=== PATIENT | female | born 1970 | race Caucasian/White ===

== ENCOUNTER 2019-11-24 11:03 | Emergency (ER) | payer BC, OTHER ==
[~2019-11-24] VITALS: Ht 165.1 cm; Wt 68.0 kg
[~2019-11-24 11:03] MED LIST: ANASPAZ0.125 MG SL; CENTRUM SILVER1 EAC4 PO; CITRATE OF MAG296 M1 PO; CLONAZEPAM 0.50.5 M1 PO; CO Q-10100 MG PO; CYMBALTA60 MG PO; D3 DOTS2000 UNIT PO; ESTRADIOL 1 MG T1 M1 PO; FLEXERIL PO; FOLIC ACID1 MG PO; KEFLEX500 MG PO; LANSOPRAZOLE30 MG PO; LINZESS145 MCG PO; ONDANSETRON HCL4 M2 PO; PERCOCET 5-3251 EACH PO; PHENERGAN 25 MG25 M1 PO; PREVACID 24HR15 MG PO; PREVACID15 MG PO; PRILOSEC 20 MG20 MG PO; REGLAN 10 MG TA10 MG PO; STOOL SOFTENER100 MG PO; TORADOL 10 MG T10 MG PO; VITAMIN B-1100 M1 PO; XANAX1 MG PO; ZOFRAN ODT4 MG PO; ZYRTEC10 M4 PO
[2019-11-24] MEDS ORDERED: CORLANOR5 MG PO (11:19)
[2019-11-24 14:05] VITALS: BP 138/76
[2019-11-24] MEDS ORDERED: PROMS25 WY RECTAL (14:26)
[2019-11-24] MEDS ORDERED: PHENERGAN 25 MG25 M1 PO (14:26)
== END 2019-11-24 14:05 | disposition home or self-care (01) ==
LOC: ER 11:03
DX: G43.909 Migraine, unspecified, not intractable, without status migrainosus (principal); Z90.710 Acquired absence of both cervix and uterus; Z88.5 Allergy status to narcotic agent